=== PATIENT | male | born 1980 | race Hispanic/Latino ===

== ENCOUNTER 2019-04-08 16:46 | Emergency (ER) | payer OTHER ==
[~2019-04-08] VITALS: Ht 162.6 cm; Wt 70.3 kg
--- OUTSIDE RECORDS SUMMARY | 2019-04-08 16:50 | XMS REPORT | Summary of Care ---
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 Role Phone Chantelle Bryant MD PCP Reason for Visit * Reason Comments Depression Encounter Details Care Team Description Date Type Department Chantelle Bryant MD [address] [place] [address] Anxiety and depression (Primary Dx) 03/16/2019 Office Visit [facility] [address], [address] [place] [address] Allergies No Known Allergiesdocumented as of this encounter (statuses as of 03/16/2019) Medications End Date Status Medication Sig Dispensed Refills Start Date Active SERTraline 100 mg Take 1 tablet 90 tablet 1 tabletIndications: by mouth 9 Anxiety and depression daily. documented as of this encounter (statuses as of 03/16/2019) Active Problems Problem Noted Date History of kidney stones documented as of this encounter (statuses as of 03/16/2019) Social History Date Tobacco Use Types Packs/Day Years Used Never Smoker Smokeless Tobacco: Never Used Drinks/Week oz/Week Comments Alcohol Use 0 Standard drinks or equivalent 0.0 rarely - last drink in 2014 Yes Sex Assigned at Date Recorded Not on file Industry Job Start Date Occupation Not on file Not on file Not on file Travel End Travel History Travel Start No recent travel history available. documented as of this encounter Last Filed Vital Signs Reading Time Taken Comments Vital Sign 110/68 03/16/2019 4:30 PM CDT Blood Pressure 82 03/16/2019 4:30 PM CDT Pulse 37.2 C (99 F) 03/16/2019 4:30 PM CDT Temperature 14 03/16/2019 4:30 PM CDT Respiratory Rate 99% 03/16/2019 4:30 PM CDT Oxygen Saturation - - Inhaled Oxygen Concentration 71.2 kg (157 lb) 03/16/2019 4:30 PM CDT Weight 162.6 cm (5' 4") 03/16/2019 4:30 PM CDT Height 26.95 03/16/2019 4:30 PM CDT Body Mass Index documented in this encounter Progress Notes * Chantelle Bryant MD - 03/16/2019 4:20 PM CDT SUBJECTIVE CC: Chief Complaint Patient presents with Depression ID: Reinier Barton is a 38 year old male, with medical hx detailed below, here for depression Interval History: 02/02/19: seen by me - increase zoloft to 100 01/02/19: seen by me for depression - restart zoloft 50-100 HPI: He has since increased his zoloft to 100 and has noticed a major improvement wit h his depressed mood and energy. He doesn't feel like 100% at baseline but is p leased with the progress so far. He does still feel that he worries at times bu t this isn't worse since the dose increase. He feels that he is able to manage his worrying with his own coping mechanisms. Works continues to be "good and [employer]." With regard to his feelings of guilt with his work he is "getting used" his current roles. He takes zoloft in the day and it is not disrupting his slee p. He also notes that has family has commented on how he is more willing to "Ge t out there." MATTEO-7: 0 - Not at all, 1 - Several Days, 2 - More than half the days, 3 - Nearly every day 1. Feeling nervous, anxious, or on edge: 1 2. Not being able to stop or control worryin 3. Worrying too much about different things: 1 4. Trouble relaxin 5. Being so restless that is is hard to sit still: 0 6. Becoming easily annoyed or irritable: 0 7. Feeling afraid as if something awful might happen: 2 Total score: 6 5-9 - mild, 10-14 - moderate, 15-21 - severe PHQ-2 Little interest or pleasure in doing things: (!) Several days Feeling down, depressed, or hopeless: (!) Several days PHQ-2 Score (_/6): (!) 2 PHQ-2 Scoring Interpretation: Positive screen PHQ-9 Trouble falling or staying asleep, or sleeping too much: Not at all Feeling tired or having little energy: Several days Poor appetite or overeating: Several days Feeling bad about yourself - or that you are a failure or have let yourself or y our family down: Several days Trouble concentrating on things, such as reading the newspaper or watching telev ision: Not at all Moving or speaking so slowly that other people could have noticed. Or the opposi te - being so fidgety or restless that you have been moving around a lot more th an usual: Not at all Thoughts that you would be better off , or of hurting yourself in some way: Not at all PHQ-9: TOTAL SCORE: 5 If you checked off any problems, how difficult have these problems made it for y ou to do your work, take care of things at home, or get along with other people? : Not difficult at all MEDICAL HISTORY Past Medical History: Diagnosis Date History of kidney stones 2 episodes Current Outpatient Medications Medication Sig SERTraline 100 mg tablet Take 1 tablet by mouth daily. REVIEW OF SYSTEMS Negative For: Positive For: GEN x fevers, chills, night sweats, weight loss, fatigue EYES vision changes, eye pain ENT rhinorrhea, sore throat CV x chest pain, palpitations PULM cough, shortness of breath, wheezing, ABD x pain, nausea, vomiting, diarrhea, melena, BRBPR dysuria, change in frequency, hematuria MSK x myalgias, arthralgias, swelling SKIN x rashes, lesions HEME x bleeding, bruising NEURO x syncope, numbness/tingling ENDO polyuria, polydipsia, temp. intolerance ALLG seasonal allergies, food allergies PSYC depressed mood, suicidal or homocidal ideations x depression/anxiety GAIT falls PHYSICAL EXAM BP 110/68 (BP Location: Right arm, Patient Position: Sitting, BP CUFF SIZE: Adul t Medium) | Pulse 82 | Temp 37.2 C (99 F) (Temporal Artery) | Resp 14 | Ht 5' 4" (1.626 m) | Wt 157 lb (71.2 kg) | SpO2 99% | BMI 26.95 kg/m BP Readings from Last 3 Encounters: 03/16/19 110/68 02/02/19 118/72 01/02/19 120/80 Wt Readings from Last 3 Encounters: 03/16/19 157 lb (71.2 kg) 02/02/19 156 lb 7 oz (71 kg) 01/02/19 154 lb 11.2 oz (70.2 kg) GEN: A&O x 3, No acute distress HEAD: no gross deformity EYES: PERRLA, EOMI, sclera/conjunctiva clear NECK: supple LUNGS: No increased work of breathing, CTABL, no w/r/r CV: RRR, s1s2, no m/r/g GI: soft, NTND, NABS, no HSM NEURO: grossly normal without focal neurological deficits PSYC: cognition intact, normal affect and judgement LABORATORY & IMAGING DATA CBC w/Diff Lab Results Component Value Date/Time WBC 5.6 09/05/2016 03:25 PM RBC 5.79 09/05/2016 03:25 PM HGB 16.3 09/05/2016 03:25 PM HCT 46.6 09/05/2016 03:25 PM MCV 81 09/05/2016 03:25 PM PLT 281 09/05/2016 03:25 PM Basic Metabolic Profile Lab Results Component Value Date/Time NA 141 09/05/2016 03:25 PM K 4.1 09/05/2016 03:25 PM CL 99 09/05/2016 03:25 PM TCO2 27 09/05/2016 03:25 PM BUN 9 09/05/2016 03:25 PM CREAT 0.88 09/05/2016 03:25 PM GLU 87 09/05/2016 03:25 PM CA 9.6 09/05/2016 03:25 PM Liver Function Panel Lab Results Component Value Date/Time AST 20 09/05/2016 03:25 PM ALT 11 09/05/2016 03:25 PM ALKPHOS 123 (H) 09/05/2016 03:25 PM TPRO 7.5 09/05/2016 03:25 PM ALB 4.5 09/05/2016 03:25 PM Hemoglobin A1C Lab Results Component Value Date/Time HGBA1C 5.5 09/05/2016 03:25 PM Lipid Panel Lab Results Component Value Date/Time HDL 54 09/05/2016 03:25 PM Imaging Not applicableASSESSMENT & PLAN Anxiety and depression: overall improving on sertraline and tolerating dose incr ease; As before, this is an acute on chronic issues, over the last 1 year in set ting of increased workload/stress/responsibility at work. He essentially take w ork with him everywhere and "cannot escape" it but changes to his position have helped relieved this some. He is no loner having regular occurrences of sadness . Concentration issues have improved. Still has some mild anxiety symptoms but is overall improving He has remote hx of SI as a teenager but none currently. Molly sarmiento contracts for his safety and has good local support. - Continue zoloft 100mg (dose increased 01/2019, initiated 12/2018) - Declines therapy as previously - FU in 3 months - Plan for likely 3-6 month course, or longer if needed Return in about 3 months (around 06/16/2019). Plan of care, desired healthy behaviors, goals and medications discussed with sandor oswald and educational resources and self-management tools provided. Patient/fam jennifer/guardian voices understanding. Barriers to adherence: none Ability to manage care: good For new medications dispensed, I reviewed potential side effects, drug interacti ons, instructions for taking the medication and consequences of not taking it wi th the patient or guardian. They acknowledged understanding of new medication in formation. documented in this encounter Plan of Treatment Care Team Description Date Type [facility] [address] [id number] 06/16/2019 Office Visit Family Medicine Health Maintenance Due Date Last Done Comments VARICELLA VACCINES (1 of 1994 2 - 13+ 2-dose series) DTaP,Tdap,and Td Vaccines 2000 (1 - Tdap) INFLUENZA VACCINE 04/12/2019 PNEUMOCOCCAL 0-64 YEARS Aged Out No longer eligible based COMBINED SERIES on patient's age to complete this topic documented as of this encounter Results Not on filedocumented in this encounter Visit Diagnoses Diagnosis Anxiety and depression - Primary Dysthymic disorder documented in this encounter Insurance Type Payer Benefit Subscriber ID Effective Phone Address Plan / Dates Group PPO [employer] GRICELDA AN [id number] 2018-P [employer] documented as of this encounter
--- OUTSIDE RECORDS SUMMARY | 2019-04-08 16:50 | XMS REPORT ---
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 Allergies, Adverse Reactions, Alerts This patient has no known allergies or adverse reactions. Medications This patient has no known medications.
--- OUTSIDE RECORDS SUMMARY | 2019-04-08 16:50 | XMS REPORT | Summary of Care ---
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 Role Phone Chantelle Bryant MD PCP Reason for Visit * Reason Comments Depression Encounter Details Care Team Description Date Type Department Chantelle Bryant MD [address] [place] [address] Anxiety and depression (Primary Dx) 03/16/2019 Office Visit [facility] [address], [address] [place] [address] Allergies No Known Allergiesdocumented as [...] Treatment Care Team Description Date Type [facility]ty [facility] Carrie Ash [address] [id number] 06/16/2019 Office Visit Family Medicine Health Maintenance [...] / Dates Group PPO [employer] GRICELDA AN [id number] 2018-P [employer] documented as of this encounter
[2019-04-08] MEDS ORDERED: SODIUM CHLORIDE 0.9% 1000ML 1,000 ML IV STA (17:38)
[2019-04-08] MEDS ORDERED: ONDANSETRON HCL INJ 2MG/ML 2ML 2 MG/ML VIAL IV NR (18:00)
[2019-04-08] MEDS ORDERED: KETOROLAC TROMETHAMINE 30 MG/ML VIAL IV NR (18:00)
[2019-04-08 18:02] LABS: BASOPHILS % 0.8 % (0.0-1.0); EOSINOPHILS # (AUTO) 0.2 (0.0-0.4); EOSINOPHILS % 3.3 % (0.0-6.0); HEMATOCRIT 48.3 % (38.2-49.6); HEMOGLOBIN 15.8 g/dL (14.0-18.0); LYMPHOCYTES # (AUTO) 1.1 (1.0-3.2); LYMPHOCYTES % 22.3 % (18.0-39.1); MEAN CORPUSCULAR HEMOGLOBIN 27.2 pg (28-32); MEAN CORPUSCULAR HGB CONC 32.7 g/dL (31-35); MEAN CORPUSCULAR VOLUME 83.1 fL (81-99); MONOCYTES # (AUTO) 0.3 (0.2-0.8); NEUTROPHILS # (AUTO) 3.2 (2.1-6.9); PLATELET COUNT 288 x10e3/uL (140-360); RED BLOOD COUNT 5.81 x10e6/uL (4.3-5.7); RED CELL DISTRIBUTION WIDTH 13.4 % (11.7-14.4)
[2019-04-08 18:05] LABS: BILIRUBIN,URINE NEGATIVE (NEGATIVE); CLARITY,URINE SL CLOUDY (CLEAR); COLOR,URINE YELLOW (YELLOW); KETONES,URINE TRACE (NEGATIVE); LEUKOCYTE ESTERASE ,URINE NEGATIVE (NEGATIVE); NITRITE,URINE NEGATIVE (NEGATIVE); PROTEIN,URINE DIPSTICK NEGATIVE (NEGATIVE); URINE UROBILINOGEN 0.2 mg/dL (0.2 - 1)
--- NOTE | 2019-04-08 18:15 | Diagnostic Imaging Report ---
EXAM: CT Abdomen and Pelvis WITHOUT contrast INDICATION: Left flank pain. Kidney stone. COMPARISON: None. TECHNIQUE: Abdomen and pelvis were scanned utilizing a multidetector helical scanner from the lung base to the pubic symphysis without administration of IV contrast. Absence of intravenous contrast decreases sensitivity for detection of focal lesions and vascular pathology. Coronal and sagittal reformations were obtained. Routine protocol was performed. IV CONTRAST: None ORAL CONTRAST: Water COMPLICATIONS: None RADIATION DOSE: Total DLP: 244 mGy*cm Estimated effective dose: (DLP x 0.015 x size factor) mSv CTDIvol has been reviewed. It is below the limits set by the Radiation Protocol Committee (RPC). Dose modulation, iterative reconstruction, and/or weight based adjustment of the mA/kV was utilized to reduce the radiation dose to as low as reasonably achievable. FINDINGS: LINES and TUBES: None. LOWER THORAX: Unremarkable HEPATOBILIARY: No focal hepatic lesions. No biliary ductal dilation. GALLBLADDER: No radio-opaque stones or sludge. No wall thickening. SPLEEN: No splenomegaly. PANCREAS: No focal masses or ductal dilatation. ADRENALS: No adrenal nodules KIDNEYS/URETERS: No hydronephrosis. No cystic or solid mass lesions. No stones. GI TRACT: No abnormal distention, wall thickening, or evidence of bowel obstruction. Appendix is normal. PELVIC ORGANS/BLADDER: Punctate stone in the urinary bladder adjacent to the left ureterovesicular junction likely due to a recently passed stone. LYMPH NODES: No lymphadenopathy. VESSELS: Unremarkable. PERITONEUM / RETROPERITONEUM: No free air or fluid. BONES: Unremarkable. SOFT TISSUES: Unremarkable. IMPRESSION: Punctate stone in the urinary bladder adjacent to the left ureterovesicular junction likely due to a recently passed stone. No hydronephrosis, hydroureter or perinephric fat stranding Signed by: Dr. Sukhdev Whitt M.D. on 04/08/2019 6:12 PM
[2019-04-08 18:22] LABS: ALANINE AMINOTRANSFERASE 16 IU/L (0-55); ALBUMIN 4.3 g/dL (3.5-5.0); ALBUMIN/GLOBULIN RATIO 1.2 (0.8-2.0); ALKALINE PHOSPHATASE 151 IU/L (40-150); ANION GAP 14.7 mmol/L (8-16); BLOOD UREA NITROGEN 11 mg/dL (7-26); BUN/CREATININE RATIO 11 (6-25); CALCIUM 9.7 mg/dL (8.4-10.2); CARBON DIOXIDE 24 mmol/L (22-29); CHLORIDE 101 mmol/L (98-107); CREATININE, SERUM 1.02 mg/dL (0.72-1.25); EST GLOMERULAR FILTRATION RATE > 60 ML/MIN (60-); GLUCOSE 92 mg/dL (74-118); POTASSIUM 3.7 mmol/L (3.5-5.1); SODIUM 136 mmol/L (136-145)
[2019-04-08 18:27] LABS: AMORPHOUS SEDIMENT,URINE FEW (FEW); BACTERIA,URINE MODERATE /HPF; EPITHELIAL CELLS,URINE MODERATE /LPF; WBC,URINE (MAN) 0-5 /HPF (0-5)
== END 2019-04-08 19:01 | disposition home or self-care (01) ==
LOC: ER 16:46
DX: N20.1 Calculus of ureter (principal); R10.9 Unspecified abdominal pain
CPT/HCPCS: 36415; 74176; 80053; 81001; 85025; 87086; 99284; J1885; J2405